=== PATIENT | female | born 1970 | race Caucasian/White ===

== ENCOUNTER 2020-05-30 19:12 | Emergency (ER) | payer BC ==
[2020-05-30] MEDS ORDERED: Cephalexin 500 MG Cap PO ONE (19:46)
--- NOTE | 2020-05-30 19:53 | EDM.PDOC ---
ED HPI GENERAL MEDICAL PROBLEM - General Chief Complaint: COMMUNICATIONS AGENT Problem Stated Complaint: HISTORECTOMY LAST MONDAY PAIN DRAINING Time Seen by Provider: 05/30/20 19:32 Source of Information: Reports: Patient, RN, RN Notes Reviewed History Limitations: Reports: No Limitations - History of Present Illness INITIAL COMMENTS - FREE TEXT/NARRATIVE: Patient presents to ER with complaint of pain at incisional site with copious amount of drainage from the incision. Patient states she talked to the on-call doctor at [facility] who states he wanted the dressing left on until she was to be seen by Dr. Schwartz on Monday. Patient states she has soaked ABD pads, drainage oozing out around the dressing that is present. Patient states fever and chills x2 days ago, but none since then. Denies nausea, vomiting, diarrhea, cough, lightheadedness. Patient reports pain 8/10. States she has been taking ibuprofen and Percocets that have been prescribed to her postop. Onset: Gradual Abdomen Pain Score (Numeric/FACES): 7 - Related Data Allergies Allergy/AdvReac Type Severity Reaction Status Date / Time No Known Allergies Allergy Verified 10/26/15 10:14 ED ROS GENERAL - Review of Systems Review Of Systems: Comprehensive ROS is negative, except as noted in HPI. ED EXAM, SKIN/RASH Exam: See Below Exam Limited By: No Limitations General Appearance: Alert, WD/WN, Mild Distress Eye Exam: Bilateral Eye: EOMI, Normal Inspection Ears: Normal External Exam, Hearing Grossly Normal Nose: Normal Inspection Throat/Mouth: Normal Inspection, Normal Voice, No Airway Compromise Head: Atraumatic, Normocephalic Neck: Normal Inspection, Supple, Non-Tender, Full Range of Motion Respiratory/Chest: No Respiratory Distress, Lungs Clear, Normal Breath Sounds, No Accessory Muscle Use, Chest Non-Tender Cardiovascular: Normal Peripheral Pulses, Regular Rate, Rhythm, No Edema, No Gallop, No JVD, No Murmur, No Rub Peripheral Pulses: 2+: Radial (L), Radial (R) GI/Abdominal: Normal Bowel Sounds, Tender (diffuse, most at incisional site), Other (semi rigid at incisional site) (Female) Exam: Deferred Rectal (Female) Exam: Deferred Back Exam: Normal Inspection, Full Range of Motion, NT Extremities: Normal Inspection, Normal Range of Motion, Non-Tender, No Pedal Edema, Normal Capillary Refill Neurological: Alert, Oriented, CN II-XII Intact, Normal Cognition, Normal Gait, Normal Reflexes, No Motor/Sensory Deficits Psychiatric: Normal Affect, Normal Mood Skin: Warm, Dry, Wound/Incision (sherwin intact, minimal erythema around the icisional site, copious amount of thick green/yellow/brown drainage. ) Location, Skin: Abdomen Associated features: Warmth, Tenderness, Weeping Lymphatic: No Adenopathy Course - Vital Signs Last Recorded V/S: Last Vital Signs Temp 98.3 F 05/30/20 19:33 Pulse 142 H 05/30/20 19:33 Resp 18 05/30/20 19:33 BP 134/54 L 05/30/20 19:33 Pulse Ox 100 05/30/20 19:33 - Orders/Labs/Meds Orders: Active Orders 24 hr Category Date Time Status CULTURE WOUND [RM] Urgent Lab 05/30/20 19:38 Received Meds: Medications Discontinued Medications Generic Name Dose Route Start Last Admin Trade Name Chinoq PRN Reason Stop Dose Admin Cephalexin 500 mg 05/30/20 19:46 05/30/20 20:00 Keflex PO 05/30/20 19:47 500 mg ONETIME ONE Administration - Re-Assessments/Exams Free Text/Narrative Re-Assessment/Exam: 05/30/20 22:49 Dressing was removed, copious amounts of brown/green/yellow thick drainage from the incisional site. Drainage was cultured. ABDs reapplied. Patient given first dose of cephalexin. Patient will follow up on Monday with her surgeon. Departure - Departure Time of Disposition: 19:52 Disposition: Home, Self-Care 01 Condition: Good Clinical Impression: Post-operative infection Qualifiers: Encounter type: initial encounter Postoperative infection type: deep incisional surgical site Qualified Code(s): T81.42XA - Infection following a procedure, deep incisional surgical site, initial encounter - Discharge Information *PRESCRIPTION DRUG MONITORING PROGRAM REVIEWED*: No *COPY OF PRESCRIPTION DRUG MONITORING REPORT IN PATIENT TIP: No Instructions: Wound Infection, Swli-wm-[id number] Referrals: PCP,Unobtain [Primary Care Provider] - Forms: ED Department Discharge Additional Instructions: Rx: Cephalexin 500 mg 3 times daily for 10 days Continue using home medications as prescribed Return to the ER with any worsening of problems Follow-up with your surgeon at regularly scheduled appointment on Monday Sepsis Event Note (ED) - Evaluation Sepsis Screening Result: Possible Sepsis Risk - Focused Exam Vital Signs: Vital Signs Temp Pulse Resp BP Pulse Ox 05/30/20 19:33 98.3 F 142 H 18 134/54 L 100 - My Orders Last 24 Hours: My Active Orders 05/30/20 19:38 CULTURE WOUND [RM] Urgent - Assessment/Plan Last 24 Hours: My Active Orders 05/30/20 19:38 CULTURE WOUND [RM] Urgent
== END 2020-05-30 20:02 | disposition home or self-care (01) ==
LOC: DL.ED 19:12
DX: T81.42XA Infection following a procedure, deep incisional surgical site, initial encounter (principal)
CPT/HCPCS: 87070; 87077; 87186; 99284; A9270